=== PATIENT | female | born 1930 | race Caucasian/White ===

== ENCOUNTER 2018-09-14 10:40 | Emergency (ER) | payer OTHER ==
[2018-09-14] MEDS ORDERED: ACETAMINOPHEN 325 MG TAB PO ONE (11:15)
--- NOTE | 2018-09-14 11:26 | EDPHY ---
General Time Seen by Provider: 09/14/18 10:55 Narrative: CLINICAL IMPRESSION: Atraumatic right hip pain ASSESSMENT/PLAN: 88-year-old female presents to the emergency department by taxi from [facility] for evaluation of atraumatic right hip pain. There are conflicting reports regarding the duration of this hip pain. Patient reports pain started last night and has been keeping her awake. However, patient is able to ambulate on her own without assistance. Vital signs are stable, afebrile, nontoxic. Reproducible pain noted to palpation of the right greater trochanter and right SI region. She has intact distal neurovascular exam, normal DTRs, strength 5/5 bilaterally, and no swelling, erythema or warmth. No clinical signs to suggest septic joint, DVT, arterial thrombus, compartment syndrome, necrotizing fasciitis, sacroilitis. She has no reproducible midline back pain or clinical signs to suggest cauda equina, epidural abscess, meningitis, or infection. X-rays of the right hip and pelvis as well as right knee show degenerative changes with no evidence of acute fracture, dislocation or lytic bone lesions. Patient does have a remote history of breast cancer. Patient is requesting an MRI however this is not indicated for emergent purposes at this time. I did have our supportive employment case manager relayed this information to patient's [id number] whom is her daughter out of state. I recommend patient follow up with primary care and I did given orthopedic referral should pain persist. Patient was able to ambulate out of the emergency department on her own power to a taxi. Warning signs return to ED sooner outlined and discharge. DIFFERENTIAL DX: Differential includes but not limited to musculoskeletal hip pain, acute hip fracture, pelvic fracture, lytic bone lesion ED PROCEDURES: See lab and/or imaging results below ED COURSE: 11:45 a.m.: X-rays reviewed. No evidence of acute fracture or dislocation. No lytic lesions. Radiology has also read this as negative. No clinical signs to suggest arterial thrombosis, DVT, necrotizing fasciitis, compartment syndrome. Patient will be discharged for PCP and orthopedic follow-up and outpatient MRI. 11:50 A.M.:. Patient reassessed, states her pain is improved with Tylenol. Complaining of right knee pain and would like an x-ray of this as well. I explained that we do not do emergent MRIs in the ER. She is okay with this. Agrees to a Lidoderm patch on the hip. 12:30 P.M. x-rays of the knee reviewed by myself. No fracture, lytic lesion or dislocation identified. CHIEF COMPLAINT: Right hip pain HPI: 88-year-old female, resident at [facility], presents to the emergency department by taxi today with complaints of atraumatic right hip pain. Patient believes her hip pain began yesterday. She does not report any trauma, injury or fall. There are conflicting reports that she received an x- ray yesterday but patient cannot confirm this. She has a history of breast cancer treated 20 years ago with chemotherapy, radiation bilateral mastectomy. She has no complaints of abdominal pain, flank pain, UTI symptoms, hematuria, fever, chills, sensory changes to the leg or temperature change. No asymmetric swelling. No pain to the knee or ankle. She states someone at [facility] gave her something for pain last night but she was unable to sleep with this. No reports of back pain. PAST MEDICAL HISTORY: Past history of breast cancer, questionable dementia See nurse/triage notes for additional history if applicable Pertinent Past Surgical History: Bilateral mastectomy, splenectomy Family History: Unable to obtain Social History: Resident at [facility] REVIEW OF SYSTEMS: All other systems negative Constitutional: No fever, no chills, appetite change. Cardiovascular: No chest pain, no palpitations. Respiratory: No cough, no shortness of breath. Gastrointestinal: No abdominal pain, no vomiting, diarrhea. Genitourinary: No hematuria, dysuria, flank pain, pelvic pain Musculoskeletal: No back pain, joint swelling, positive right-sided hip joint pain, myalgias. Skin: No rashes, color change. Neurological: No headache, dizziness, weakness. PHYSICAL EXAM: General Appearance: Alert, oriented, appropriate, cooperative, thin, frail NAD , well hydrated, non-toxic appearing, VSS, no hypoxia. Neck: Supple, nontender, no lymphadenopathy, no midline pain, FROM, no meningismus. Respiratory: There are no retractions, lungs are clear to auscultation. Cardiac: Regular rate and rhythm, no murmurs or gallops. Gastrointestinal: Abdomen is soft, nontender, bowel sounds normal, no masses/ hernia, no rigidity, guarding or focal peritoneal findings. No flank pain Neurological: Alert and oriented x 3, CN 2-12 grossly intact, normal gait no ataxia, patellar DTR's 2+ bilaterally, no clonus, normal sensation and strength Skin: Warm, dry, no rashes, no nodules on palpation. Musculoskeletal: Extremities are symmetrical, full range of motion, mild reproducible tenderness to palpation of the right greater trochanter and right SI joint. Negative straight leg raise. No deformity, swelling, or erythema. No warmth to the joint. No swelling. Femoral, posterior tibialis and pedal pulses 2+ bilaterally. Symmetric temperature and skin coloration. No calf asymmetry or tenderness. No joint effusion. Psychiatric: Patient is oriented X 3, there is no agitation. MEDICAL DECISION MAKING: Patient was seen independently. Secondary supervising physician at time of evaluation was Dr Jovel. Diagnosis: Atraumatic right hip and knee pain . New, requires workup Summary: See Assessment and Plan for summary of ED visit Independent visualization of images, tracing, or specimens: Yes. Patient Progress: Improved, stable. - Diagnostics Imaging Results: Imaging Impressions Hip X-Ray 09/14/18 11:15 Impression: Negative radiographs of the right hip. Knee X-Ray 09/14/18 11:58 Impression: Negative for acute abnormality. Mild chondrocalcinosis. Atherosclerosis. - History Smoking Status: Never smoked - Objective Vital Signs: Initial Vital Signs Temperature (C) 36.5 C 09/14/18 10:47 Heart Rate 86 09/14/18 10:47 Respiratory Rate 17 09/14/18 10:47 Blood Pressure 153/88 H 09/14/18 10:47 O2 Sat (%) 95 09/14/18 10:47 O2 Delivery Mode Room Air Allergies/Adverse Reactions: Penicillins Allergy (Verified 09/14/18 10:45) Sulfa (Sulfonamide Antibiotics) Allergy (Verified 09/14/18 10:45) OTHERS UNKNOWN Allergy (Uncoded 09/14/18 10:45) Home Medications: Medication Instructions Recorded "Thinks She Is On Meds" 09/14/18 Medications Given: Discontinued Medications Acetaminophen (Tylenol) 650 mg PO EDNOW ONE Stop: 09/14/18 11:16 Last Admin: 09/14/18 11:25 Dose: 650 mg Miscellaneous Medication (Icy Hot Lidocaine/Menthol 4%/1% Patch) 1 patch TD EDNOW ONE Stop: 09/14/18 11:59 Last Admin: 09/14/18 12:15 Dose: 1 patch Departure - Departure Disposition: Home, Routine, Self-Care Clinical Impression: Right hip pain Condition: Fair Instructions: Hip Pain (ED) Additional Instructions: DISCHARGE INSTRUCTIONS FROM YOUR DOCTOR Thank you for visiting our emergency department today. Please keep in mind that discharge from the emergency department does not mean that there is nothing wrong - it simply means that we have not identified an emergency condition that requires further evaluation or treatment in the hospital. You should always plan to follow up with primary care for re-evaluation of your condition in the next 2-3 days. If you have been referred to a specialist, please call as soon as possible (today or tomorrow) to schedule your follow up appointment at the appropriate time. THE X-RAYS OF YOUR RIGHT HIP AND RIGHT KNEE SHOWED NO FRACTURE, DISLOCATION, OR CANCEROUS LESIONS. WE RECOMMEND THAT YOU SEE HER PRIMARY CARE DOC OR ORTHOPEDIC PROVIDER TO PURSUE AN OUTPATIENT MRI. THERE IS NO INDICATION FOR AN EMERGENT MRI IN THE EMERGENCY DEPARTMENT TODAY. WE RECOMMEND HAVING PHYSICAL THERAPY THROUGH [facility]. IT IS OKAY TO USE TYLENOL IF NEEDED FOR PAIN. PLEASE RETURN TO THE EMERGENCY DEPARTMENT FOR LOSS OF SENSATION TO THE LEG, COLOR CHANGE TO THE LEG, INABILITY TO WALK, FEVERS GREATER THAN 100.4, REDNESS OR WARMTH TO THE HIP JOINT, WORSENING OR SEVERE PAIN, OR ANY OTHER CONCERNS. People present with illnesses and injuries in different ways, and it is always possible that we have missed something. You may always return for re-evaluation if symptoms worsen or if they are not improving or if you develop new/different symptoms. Again, thank you for choosing our emergency department. We hope that you feel better. Referrals: Gt Huitron MD [Primary Care Provider] - 1-2 days without fail Ko Acosta MD [Medical Doctor] - As per Instructions
[2018-09-14] MEDS ORDERED: LIDOCAINE 4%/MENTHOL 1% PATCH TD ONE (11:58)
[2018-09-14 12:16] VITALS: BP 180/91
--- NOTE | 2018-09-14 14:52 | ASMTCMCOM ---
CM Note CM Note Notes: Pt presented to the ED via taxi cab from [facility] for right hip pain. CM requested to assist w/getting pt back home. Spoke w/[facility] and confirmed that pt is not on their Memory Care Unit and they recommended sending the pt back by taxi cab. Spoke w/pt and she states she doesn't have any family or friends to come get her but that she would feel fine returning via cab and she has her own credit card to pay for it. The ED RN called [facility] to give report and reportedly the staff at [facility] asked that someone call the pt's daughter and MDPOA, Emelina Deng ([phone]), who lives in [place]. This CM called and spoke w/Emelina extensively re:pt's ED visit and discharge instructions. Anastasiakeara said she was hoping that the pt would have received an MRI today; this CM explained to Emelina that an x-ray was completed and didn't show anything acute/concerning so an MRI could be done outpatient. Emelina explained that the pt has mild dementia and her father (pt's ) has Alzheimers, and that it is really difficult to arrange transportation for pt to get to and from appts since [place] doesn't provide transport to medical appts. This CM provided empathetic listening and said pt is encouraged to follow up w/her PCP Dr Clementine Huitron, and the on-call ortho that the pt was referred to, Dr Acosta. Anastasiakeara states that she has tried [facility] in the past "but you have to schedule at least one week out." Emelina also states that Dr Huitron has also ordered PT for pt recently but they have not had their initial visit yet. 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 Pt has another daughter who also lives out of state. Of note, Emelina stated that pt has been given "multiple letters of incompetence" by several doctors. Emelina states that pt "can sign for consent for evaluation" but that Emelina should be contacted if there are ever any decisions to be made re:treatment. CM available for further assistance if needed. Date Signed: 09/14/2018 02:51 PM Electronically Signed By:Christy London RN
--- NOTE | 2018-09-14 14:55 | ASDISCHSUM ---
Discharge Information Plan Status:Assisted Living Medically Cleared to Leave: Discharge Date:09/14/2018 12:53 PM CM D/C Disposition:Assisted Living ADT D/C Disposition:Home, Routine, Self-Care Projected Discharge Date:09/14/2018 12:53 PM Transportation at D/C:Taxicab Discharge Delay Reason: Follow-Up Date:09/14/2018 12:53 PM Discharge Slot: Final Diagnosis: Placement Information Patient Contact Information Contact Name:ANGELIC Relationship:Manjinder Address:[address] Phone: City:[place] [facility] Phone: State/Zip Code:[place] [address] Email: Financial Information Financial Class:Medicare Advantage Plans Primary Plan Desc:[facility] ADV[employer]AGE PLANS Primary Plan Number:[id number] Secondary Plan Desc: Secondary Plan Number: Assessment Information [facility] Progress Note CM Note CM Note Notes: Pt presented to the ED via [employer] cab from [facility] for right hip pain. CM requested to assist w/getting pt back home. Spoke w/[facility] and confirmed that pt is not on their Memory Care Unit and they recommended sending the pt back by [employer] cab. Spoke w/pt and she states she doesn't have any family or friends to come get her but that she would feel fine returning via cab and she has her own credit card to pay for it. The ED RN called [facility] to give report and reportedly the staff at [facility] asked that someone call the pt's daughter and MDPOA, Emelina Deng ([phone]), who lives in [place]. This CM called and spoke w/Anastasiakeara extensively re:pt's ED visit and discharge instructions. Emelina said she was hoping that the pt would have received an MRI today; this CM explained to Emelina that an x-ray was completed and didn't show anything acute/concerning so an MRI could be done outpatient. Emelina explained that the pt has mild dementia and her father (pt's ) has Alzheimers, and that it is really difficult to arrange transportation for pt to get to and from [facility] since [place] doesn't provide transport to medical appts. This CM provided empathetic listening and said pt is encouraged to follow up w/her PCP Dr Clementine Huitron, and the on-call ortho that the pt was referred to, Dr Acosta. Emelina states that she has tried [facility] in the past "but you have to schedule at least one week out." Emelina also states that Dr Huitron has also ordered PT for pt recently but they have not had their initial visit yet. 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 Pt has another daughter who also lives out of state. Of note, Emelina stated that pt has been given "multiple letters of incompetence" by several doctors. Emelina states that pt "can sign for consent for evaluation" but that Emelina should be contacted if there are ever any decisions to be made re:treatment. CM available for further assistance if needed. Date Signed: 09/14/2018 02:51 PM Electronically Signed By:Christy London RN Intervention Information Intervention Type:Post Acute Communication Date of Service:09/14/2018 02:52 PM Patient Type:Emergency Room Staff Member:HUGO London, Christy Hours:0.5 Discipline:Timber Hewer Severity: Comment:contacted Stuart LOPEZ contacted pt's daughter/ELIZABETH
[2018-09-14] MEDS ORDERED: PATCH REMOVAL 1 EA PATCH TD SCH (21:00)
== END 2018-09-14 12:53 ==
DX: M25.551 Pain in right hip (principal); M25.561 Pain in right knee; Z85.3 Personal history of malignant neoplasm of breast

== ENCOUNTER → 2018-09-24 | Outpatient (CLI) | payer OTHER | LOC: FIMAGING 18:51 | PROVIDERS: ATTEND Physician Assistant | DX: S73.191A Other sprain of right hip, initial encounter (principal); M76.892 Other specified enthesopathies of left lower limb, excluding foot; M48.061 Spinal stenosis, lumbar region without neurogenic claudication; M48.07 Spinal stenosis, lumbosacral region; M48.05 Spinal stenosis, thoracolumbar region; M48.04 Spinal stenosis, thoracic region; M51.36 Other intervertebral disc degeneration, lumbar region; M46.96 Unspecified inflammatory spondylopathy, lumbar region; M46.97 Unspecified inflammatory spondylopathy, lumbosacral region; M46.94 Unspecified inflammatory spondylopathy, thoracic region; M46.95 Unspecified inflammatory spondylopathy, thoracolumbar region; M43.8X6 Other specified deforming dorsopathies, lumbar region; N28.1 Cyst of kidney, acquired ==